=== PATIENT | female | born 1965 | race Caucasian/White ===

== ENCOUNTER 2017-11-04 12:46 | Outpatient (CLI) | payer BC | END 2017-11-04 23:59 | disposition home or self-care (01) | LOC: D.MAMMO 12:46 | DX: Z12.31 Encounter for screening mammogram for malignant neoplasm of breast (principal) ==

== ENCOUNTER 2019-04-27 09:00 | Outpatient (CLI) | payer BC | END 2019-04-27 10:00 | disposition home or self-care (01) | LOC: D.MAMMO 09:00 | PROVIDERS: ATTEND Emergency Medicine | DX: Z12.31 Encounter for screening mammogram for malignant neoplasm of breast (principal) ==

== ENCOUNTER 2020-08-13 12:26 | Outpatient (CLI) | payer BC | END 2020-08-13 23:59 | disposition home or self-care (01) | LOC: D.MAMMO 12:26 | PROVIDERS: ATTEND Student in an Organized Health Care Education/Training Program | DX: Z12.31 Encounter for screening mammogram for malignant neoplasm of breast (principal) ==